=== PATIENT | female | born 1960 | race African-American/Black ===

== ENCOUNTER 2024-01-21 13:16 | Outpatient (OUT) | payer MEDICARE, MEDICAID, SELFPAY ==
--- NOTE | 2024-01-21 13:33 | CT_ITS ---
[address] [address] Patient Name: LISA YOUSIF MRN: [id number] date: 1960 Sex: F Assigned Patient Location: LAB Current Patient Location: Accession/Order Number: [id number] Exam Date: 01/21/2024 13:55 Report Date: 01/22/2024 08:32 At the request of: VALENTINA LIND Procedure: CT abdomen pelvis wo/w con EXAMINATION: CT abdomen pelvis wo/w con HISTORY: Hydronephrosis N13.3, Renal Cyst N28.1 COMPARISON: No relevant comparison available. TECHNIQUE: Axial, Coronal, and Sagittal images were created without and with non-ionic intravenous contrast material. Dose reduction techniques were achieved by using automated exposure control and/or adjustment of mA and/or kV according to patient size and/or use of iterative reconstruction technique. FINDINGS: LUNG BASES: No visible pulmonary or pleural disease. LIVER: No enlargement, atrophy, abnormal density, or significant focal lesion. BILIARY: No dilatation or calcification. PANCREAS: No lesion, fluid collection, ductal dilatation, or atrophy. SPLEEN: No enlargement or focal lesion. ADRENALS: No mass or enlargement. KIDNEYS: Moderate right hydroureteronephrosis extending down to the right ureterovesical junction with no focal obstruction or stone observed. Normal left. BOWEL/MESENTERY: Contour deformity and suture lines along the stomach. Moderate amount of stool throughout the colon. Nonobstructive bowel gas pattern normal appendix AORTA/VASCULAR: IVC filter. RETROPERITONEUM: No mass or adenopathy. LYMPH NODES: No adenopathy. URINARY BLADDER: Balloon catheter. Nondistended PELVIC ORGANS: No visible mass. Pelvic organs appropriate for patient age. ABDOMINAL WALL: No mass or hernia. BONES: No bony lesion or fracture. OTHER: Negative. CT/CT abdomen pelvis wo/w con IMPRESSION: Right moderate hydroureteronephrosis extending down to the ureterovesical junction. No focal obstruction observed Electronically authenticated by: JESSY ABEBE Date: 01/22/2024 08:32
[2024-01-21 13:41] LABS: Estimated GFR (African America >60 (>=60); Estimated GFR (Non-African Ame 54 (>=60)
== END 2024-01-21 13:17 | disposition home or self-care (01) ==
LOC: LAB 13:17
PROVIDERS: PCP Urology; Visit Provider Urology
DX: N13.30 Unspecified hydronephrosis (principal); N28.1 Cyst of kidney, acquired
CPT/HCPCS: 36415; 74178; 82565; Q9967

== ENCOUNTER 2024-03-11 12:55 | Outpatient (OUT) | payer MEDICARE, MEDICAID, SELFPAY ==
--- NOTE | 2024-03-11 12:57 | NM_ITS ---
The [address] [address] Patient Name: LISA YOUSIF MRN: [id number] date: 1960 Sex: F Assigned Patient Location: [facility] Current Patient Location: [place] Accession/Order Number: [id number] Exam Date: 03/11/2024 13:00 Report Date: 03/12/2024 14:26 At the request of: DAX CYR Procedure: NM renal flow w/wo pharm int NUCLEAR MEDICINE RENAL SCAN HISTORY: Flank pain. Right hydronephrosis. COMPARISON: None. METHOD: Following hydration, the patient was injected intravenously with 9.8 mCi of [id number]-MAG3 and 40 mg of Lasix, and a standard flow study and sequential images of the kidneys were acquired in posterior projection. Renograms of cortices were generated and analyzed. FINDINGS: The kidneys are orthotopic. There is asymmetric decreased perfusion and asymmetric decreased uptake of radiopharmaceutical to the right kidney. There is satisfactory perfusion and satisfactory uptake of radiopharmaceutical to the left kidney. There is excretion of both kidneys with no significant cortical retention. The renograms are downsloping bilaterally. The right T1/2 = 16 minutes. The left T1/2 = 11 minutes. The split renal function equals 28% for the right and 72% for the left kidney. NM/NM renal flow w/wo pharm int IMPRESSION: 1. Asymmetric decreased right renal function. 2. No evidence of obstruction. Electronically authenticated by: JAKE LEAL Date: 03/12/2024 14:26
[2024-03-11 14:00] VITALS: BP 1/1
[2024-03-11] MEDS: FUROSEMIDE 40 MG/4 ML VIAL IV (14:00)
== END 2024-03-11 12:56 | disposition home or self-care (01) ==
LOC: NM 12:56
PROVIDERS: PCP Urology; Visit Provider Physician Assistant
DX: N13.4 Hydroureter (principal); N13.30 Unspecified hydronephrosis
CPT/HCPCS: 78709; A9562

== ENCOUNTER 2024-04-21 12:14 | Outpatient (OUT) | payer MEDICARE, MEDICAID, SELFPAY ==
--- NOTE | 2024-04-21 12:27 | ECG_ITS ---
The [facility] Test Date: 2024-04-21 Pat Name: LISA YOUSIF Department: Room: - Gender: Female [employer] Super[employer]: : 1960 Requested By: [id number] Order Number: [id number] Reading MD: MARINA MOTA Measurements Intervals [place] Rate: 65 P: 31 CT: 164 QRS: -14 QRSD: 90 T: 0 QT: 398 QTc: 415 Interpretive Statements SINUS RHYTHM LOW QRS VOLTAGE IN PRECORDIAL LEADS [QRS DEFLECTION < 1.0 mV IN CHEST LEADS] MINIMAL VOLTAGE CRITERIA FOR LVH, CONSIDER NORMAL VARIANT [MEETS CRITERIA IN ONE OF: R(aVL), S(V1), R(V5), R(V5/V6)+S(V1)] WARNING: DATA QUALITY MAY AFFECT INTERPRETATION No previous ECG available for comparison Electronically Signed On 04-21-2024 22:35:44 EDT by MARINA MOTA
--- NOTE | 2024-04-21 13:19 | P.GSHP_ITS ---
History of Present Illness History of Present Illness Chief complaint: hydroureteronephrosis Narrative: Patient presents for preadmission testing. Patient is a very pleasant wheelchair dependent woman with a history of a spinal cord injury resulting in paraplegia. The patient states she lives with her daughter who does help her. The patient states she is able to use her arms to slide herself to transfer from her hospital bed to her wheelchair. She states she has a Alarcon catheter in place and has had many urinary tract infections. She does have a neurogenic bladder as well as overactive bladder. Review of Systems ROS Narrative REVIEW OF SYSTEMS: Negative except as stated in HPI, ten or more systems reviewed. Constitutional: No fever, chills, weakness ENT: No sore throat or epistaxis Cardiovascular: No chest pain or palpitations Respiratory: No shortness of breath, cough, or wheezing Musculoskeletal: No joint pain or swelling Gastrointestinal: No abdominal pain, constipation, diarrhea, or vomiting Genitourinary: No hematuria Neurological: No new numbness, tingling, weakness, or headache Psychiatric: No mood changes PFSH PFS Medical History (Updated 04/21/24 @ 13:26 by Juliana Vazquez NP) Alarcon catheter in place ?Z97.8 - Presence of other specified devices (ICD-10) Paraplegia ?G82.20 - Paraplegia, unspecified (ICD-10) Back pain ?M54.9 - Dorsalgia, unspecified (ICD-10) Diabetes ?E11.9 - Type 2 diabetes mellitus without complications (ICD-10) Anemia ?D64.9 - Anemia, unspecified (ICD-10) Deep vein thrombosis ?I82.409 - Acute embolism and thrombosis of unspecified deep veins of unspecified lower extremity (ICD-10) Sleep apnea ?G47.30 - Sleep apnea, unspecified (ICD-10) GERD (gastroesophageal reflux disease) ?K21.9 - Gastro-esophageal reflux disease without esophagitis (ICD-10) Chronic venous insufficiency ?I87.2 - Venous insufficiency (chronic) (peripheral) (ICD-10) Extremity edema ?R60.0 - Localized edema (ICD-10) Cataract ?H26.9 - Unspecified cataract (ICD-10) Unable to maintain weight-bearing ?R26.89 - Other abnormalities of gait and mobility (ICD-10) Wheelchair dependence ?Z99.3 - Dependence on wheelchair (ICD-10) Spinal cord injury Sacral wound ?S31.000A - Unspecified open wound of lower back and pelvis without p enetration into retroperitoneum, initial encounter (ICD-10) Urge incontinence ?N39.41 - Urge incontinence (ICD-10) Recurrent UTI ?N39.0 - Urinary tract infection, site not specified (ICD-10) Overactive bladder ?N32.81 - Overactive bladder (ICD-10) Neurogenic bladder ?N31.9 - Neuromuscular dysfunction of bladder, unspecified (ICD-10) Mixed incontinence ?N39.46 - Mixed incontinence (ICD-10) Abdominal pain ?R10.9 - Unspecified abdominal pain (ICD-10) Hydronephrosis ?N13.30 - Unspecified hydronephrosis (ICD-10) Other urethral stricture, female ?N35.82 - Other urethral stricture, female (ICD-10) Surgical History (Updated 04/21/24 @ 13:17 by Juliana Vazquez NP) S/P IVC filter ?Z95.828 - Presence of other vascular implants and grafts (ICD-10) History of spinal surgery ?Z98.890 - Other specified postprocedural states (ICD-10) S/P cataract extraction and insertion of intraocular lens ?Z98.49 - Cataract extraction status, unspecified eye (ICD-10) ?Z96.1 - Presence of intraocular lens (ICD-10) Status post incision and drainage ?Z98.890 - Other specified postprocedural states (ICD-10) H/O tubal ligation ?Z98.51 - Tubal ligation status (ICD-10) Hx of tonsillectomy ?Z90.89 - Acquired absence of other organs (ICD-10) H/O lithotripsy ?Z98.890 - Other specified postprocedural states (ICD-10) H/O colonoscopy ?Z98.890 - Other specified postprocedural states (ICD-10) Status post lumbar spine surgery for decompression of spinal cord ?Z98.890 - Other specified postprocedural states (ICD-10) H/O gastric bypass ?Z98.84 - Bariatric surgery status (ICD-10) S/P cystourethroscopy with dilation of urethral stricture ?Z98.890 - Other specified postprocedural states (ICD-10) H/O cystoscopy ?Z98.890 - Other specified postprocedural states (ICD-10) Family History (Updated 04/21/24 @ 12:59 by Juliana Vazquez NP) Other Family history of breast cancer Family history of diabetes mellitus Family history of heart disease Family history of hypertension Family history of myocardial infarction Social History (Updated 04/21/24 @ 12:50 by Juliana Vazquez NP) Within the past year, how often did you have a drink containing alcohol: never Score interpretation: A score less than 3 is consistent with normal alcohol consumption. Smoking status: Former smoker Non-prescribed substance use: denies use Highest level of school completed/degree received: high school graduate Meds Home Medications and Allergies Home Medications ?Medication ?Instructions ?Recorded ?Confirmed ?Type Super collagen vitamin c and 04/21/24 History biotin PO baclofen 20 mg tablet 20 mg PO .[id number] 04/21/24 04/21/24 History cranberry 500 mg capsule 1,500 mg PO DAILY 04/21/24 04/21/24 History d-mannose 500 mg capsule mg PO 04/21/24 History econazole 1 % topical cream applic topical 04/21/24 History ergocalciferol (vitamin D2) 1,250 1,250 mcg PO QWEEK 04/21/24 04/21/24 History mcg (50,000 unit) capsule lactobacillus combination no.4 3 3,000 mmu cells PO DAILY 04/21/24 04/21/24 History billion cell capsule (Probiotic) magnesium oxide 400 mg (241.3 mg 400 mg PO BID 04/21/24 04/21/24 History magnesium) tablet multivitamin (Daily Multi-Vitamin 1 tab PO DAILY 04/21/24 04/21/24 History tablet) omeprazole 20 mg capsule,delayed 20 mg PO DAILY 04/21/24 04/21/24 History release oxycodone-acetaminophen 7.5 mg-325 1 tab PO Q6H 04/21/24 04/21/24 History mg tablet pregabalin 100 mg capsule 100 mg PO BID 04/21/24 04/21/24 History simvastatin 20 mg tablet 20 mg PO DAILY 04/21/24 04/21/24 History trospium 60 mg capsule,extended 60 mg PO DAILY 04/21/24 04/21/24 History release 24 hr Allergies Allergy/AdvReac Type Severity Reaction Status Date / Time lisinopril Allergy angioedema Verified 04/21/24 12:48 sulfamethoxazole Allergy Muscle Verified 04/21/24 12:48 [From Bactrim] weakness trimethoprim [From Bactrim] Allergy Unknown Verified 03/11/24 14:04 Exam Narrative Exam Narrative: Constitutional: Awake, alert, appears comfortable in wheelchair, well-appearing, very pleasant, non-weightbearing, nontoxic, interactive, vital signs as charted Head: Normocephalic, atraumatic Neck: Supple, normal appearance, normal range of motion, no meningeal signs, no lymphadenopathy Respiratory: No respiratory distress, breath sounds clear Cardiovascular: Regular rate and rhythm, strong and regular heart tones Abdomen: Nontender, normal bowel sounds, soft, no CVA tenderness Musculoskeletal: Full range of motion upper extremities, unable to move lower extremities Skin: No rashes or induration, no lesions, only visible skin inspected Neuro: Good sensation bilateral upper extremities, lack of sensation bilateral lower extremities Psychiatric: Oriented ?3, normal affect Assessment and Plan Assessment and Plan (1) Other urethral stricture, female: (2) Hydronephrosis: (3) Neurogenic bladder: (4) Overactive bladder: (5) Alarcon catheter in place: Plan Cystoscopy, right retrograde pyelogram, possible right stent placement scheduled with Dr. Moore April 27, 2024.
[2024-04-21 13:33] LABS: Basophils Percent Auto 0.5 % (0.2-2.0); Eosinophils Absolute Auto 0.3 10^3/uL (0.0-0.7); Eosinophils Percent Auto 5.5 % (0.9-7.0); Hemoglobin 10.2 g/dL (12.0-16.0); Immature Granulocytes Abs Auto 0.01 10^3/uL (0.00-0.03); Immature Granulocytes Pct Auto 0.2 % (0.0-0.5); Lymphocytes Absolute Auto 2.1 10^3/uL (1.2-3.8); Lymphocytes Percent Auto 36.5 % (20.5-60.0); Mean Corpuscular HGB Conc 30.9 g/dL (29.9-35.2); Mean Corpuscular Hemoglobin 27.3 pg (26.7-34.0); Mean Corpuscular Volume 88.5 fL (81.0-99.0); Mean Platelet Volume 9.6 fL (9.5-13.5); Monocytes Absolute Auto 0.6 10^3/uL (0.3-0.8); Monocytes Percent Auto 10.2 % (1.7-12.0); Neutrophils Absolute Auto 2.7 10^3/uL (1.4-6.5); Neutrophils Percent Auto 47.1 % (43.0-75.0); Platelet Count 218 10^3/uL (150-450); Red Blood Count 3.73 10^6/uL (4.20-5.40); Red Cell Distribution Width 16.3 % (11.0-15.0); White Blood Count 5.8 10^3/uL (4.0-11.0)
[2024-04-21 13:45] LABS: Anion Gap 8.7; Calcium 8.5 mg/dL (8.5-10.1); Carbon Dioxide 31.1 mmol/L (21.0-32.0); Chloride 105 mmol/L (98-107); Estimated GFR (African America >60 (>=60); Estimated GFR (Non-African Ame 59 (>=60); Glucose 67 mg/dL (74-106); Potassium 3.8 mmol/L (3.5-5.1); Sodium 141 mmol/L (136-145)
== END 2024-04-21 12:15 | disposition home or self-care (01) ==
LOC: PST 12:17
PROVIDERS: PCP Internal Medicine; Visit Provider Urology
DX: Z01.810 Encounter for preprocedural cardiovascular examination (principal); Z01.812 Encounter for preprocedural laboratory examination; Z01.818 Encounter for other preprocedural examination; N13.9 Obstructive and reflux uropathy, unspecified; N35.12 Postinfective urethral stricture, not elsewhere classified, female
CPT/HCPCS: 80048; 85025; 93005; G0463

== ENCOUNTER 2024-04-27 11:17 | Day surgery (SDC) | payer MEDICARE, MEDICAID, SELFPAY ==
[2024-04-21 13:13] VITALS: BP 112/74; PULSE 58; TEMP 36.2; O2SAT 96; BMI 39.5
--- NOTE | 2024-04-27 | XR_ITS ---
The [address] [address] Patient Name: LISA YOUSIF MRN: [id number] date: 1960 Sex: F Assigned Patient Location: [facility] Current Patient Location: Accession/Order Number: [id number] Exam Date: 04/27/2024 13:15 Report Date: 04/29/2024 07:39 At the request of: VALENTINA LNID Procedure: XR urethrogram retrograde EXAM: XR urethrogram retrograde HISTORY: KIDNEY STONE COMPARISON: None. TECHNIQUE: 3 intraprocedural spot fluoroscopic radiographs. FINDINGS: Initial image demonstrates retrograde filling of right collecting system with contrast with subsequent imaging showing contrast retained within the mildly dilated right renal pelvis and calyces. Final image shows a cystoscope overlying the proximal right ureter. XR/XR urethrogram retrograde IMPRESSION: 1. Limited examination due to underpenetration images. 2. Cystoscopy with retrograde filling of right collecting system and right hydronephrosis as detailed above. Electronically authenticated by: APRIL PHELPS Date: 04/29/2024 07:39
[2024-04-27 11:28] VITALS: BP 169/95; PULSE 65; TEMP 36.1; O2SAT 95; BMI 39.5
[2024-04-27 12:01] LABS: Glucometer 40 mg/dL (74-106)
[2024-04-27] MEDS: LACTATED RINGER'S SOLUTION 1,000 ML 50 ML IV (12:04)
[2024-04-27 12:21] LABS: Glucometer 49 mg/dL (74-106)
[2024-04-27] MEDS: DEXTROSE 50 %-WATER 25 GM/50 ML SYRINGE 25 ML IV ×2 (12:26→14:18)
[2024-04-27 12:44] LABS: Glucometer 80 mg/dL (74-106)
[2024-04-27] MEDS: CEFAZOLIN SODIUM/DEXTROSE,ISO 2 GM/50 ML PIGGYBACK IV (12:59)
[2024-04-27] MEDS: IOHEXOL 240 MG/ML - 10 ML VIAL INJ (13:46)
[2024-04-27 13:55] VITALS: BP 141/78; PULSE 74; TEMP 36.3; O2SAT 96
[2024-04-27 14:10] VITALS: BP 117/76; PULSE 82; O2SAT 96
--- NOTE | 2024-04-27 14:16 | P.URON_ITS ---
Urology Surgery Operative Note Operative Note Procedure Date: 04/27/24 Time Out Performed: yes Pre-op Diagnosis: Right hydroureteronephrosis Post-op Diagnosis: same as pre-op Procedures performed: 1. Cystoscopy 2. Right retrograde pyelogram, ureteroscopy 3. Paez catheter exchange Anesthesia: MAC (Dr. Gallardo) Primary Surgeon: Irasema Moore Complications: none Estimated blood loss (mL): 0 Findings: Small capacity bladder with leakage ~ 150cc, 1+ trabeculations, mild white debris within bladder and renal pelvis, squamous metaplasia trigone, paez irritation bladder dome. No bladder tumors or lesions R distal ureter J hooking. Mild right hydroureteronephrosis, mildly tortuous proximal ureter. No ureteral tumors, strictures or stones. Free flowing drainage of contrast from right UO. Specimens: none Drains: 16Fr 2 way paez, 10 cc in balloon Indications for Procedures: 64 year old female with neurogenic bladder managed with paez catheter and incidental findings of right hydroureteronephrosis on CT scan. NM renal scan showed no obstruction, but decreased split function (R- 28%). After discussion of risks/benefits of management options, patient elected to proceed to the OR for cystoscopy, right retrograde pyelogram, ureteroscopy, possible right stent placement. Risks were discussed including but not limited to bleeding, pain, infection, damage to surrounding structures, inability to place a stent, and need for additional procedures. The patient understands if a stent is placed, it is not permanent and needs to be removed or exchanged within 3 months to prevent encrustation, infection, invasive procedures and/or permanent renal damage. Detailed description of Procedure: After informed consent was obtained, the patient was brought to the operating room and transferred onto the operating table in supine position. Sequential compression devices were placed on bilateral lower extremities. The patient received the appropriate dose of preoperative IV antibiotics and MAC anesthesia was induced. Indwelling paez catheter was removed. They were positioned in modified dorsolithotomy with the appropriate pressure points padded, prepped, and draped in the usual sterile fashion for this procedure. An operative safety timeout was performed confirming the patient's identity, laterality and procedure, and all present agreed to proceed. I began by inserting a 22 [place] rigid cystoscope with 30 degree lens into the patient's urethra and bladder without difficulty. There were no bladder tumors, lesions, stones or foreign bodies. Findings as above. Bilateral ureteral orifices were orthotopic and patent. I turned my attention to the right ureteral orifice and a 6- [place] open-ended catheter was inserted into the ureteral orifice and dilute contrast was injected for retrograde pyelogram with findings as above. Mild resistance instilling contrast retrograde. Next a semirigid ureteroscope was inserted into the right UO and able to carefully navigate through J-hooking, contrast injected for RPG as above. Scope was removed and contrast was seen to freely flow out. Ureteroscope was reinserted up to the renal pelvis to further evaluate tortuous proximal ureter without noted strictures, stones or tumors. Pull down ureteroscopy was performed confirming no additional findings. A 16Fr 2way paez catheter was inserted, 10 cc in balloon, and placed to gravity bag drainage. The patient tolerated the procedure well without complication. The patient was awakened from anesthesia and sent to PACU in stable condition. Plan: Discharge to SNF. Continue monitoring renal function and hydronephrosis periodically in case functional obstruction develops. Follow up in 6 months with renal US and BMP. Cont routine monthly paez exchanges. May consider botox in the future for neurogenic contracted bladder. Other Provider present: No Post Operative care instructions: see dc instructions Urinary Catheter Management Urinary Catheter Management Urethral: Cath placed during this visit: no
[2024-04-27 14:19] LABS: Glucometer 30 mg/dL (74-106)
[2024-04-27 14:19] LABS: Glucometer 34 mg/dL (74-106)
[2024-04-27 14:25] VITALS: BP 117/70; PULSE 71; O2SAT 93
[2024-04-27 14:56] LABS: Glucometer 139 mg/dL (74-106)
[2024-04-27 15:00] VITALS: BP 126/76; PULSE 82; O2SAT 94
== END 2024-04-27 15:20 | disposition home or self-care (01) ==
PROVIDERS: PCP Internal Medicine; Visit Provider Urology
PROC: (CPT 00910; principal; 2024-04-27 12:30)
DX: N13.30 Unspecified hydronephrosis (principal); N31.9 Neuromuscular dysfunction of bladder, unspecified; Z99.3 Dependence on wheelchair; Z87.440 Personal history of urinary (tract) infections; G82.20 Paraplegia, unspecified; Z87.891 Personal history of nicotine dependence; N39.41 Urge incontinence; N35.12 Postinfective urethral stricture, not elsewhere classified, female; E66.01 Morbid (severe) obesity due to excess calories; Z68.39 Body mass index [BMI] 39.0-39.9, adult; Z98.84 Bariatric surgery status; Z98.51 Tubal ligation status; G47.33 Obstructive sleep apnea (adult) (pediatric); E11.9 Type 2 diabetes mellitus without complications
CPT/HCPCS: 00910; 52351; 36415; 74420; 82948; J0690; J2250; J2704; Q9966

== ENCOUNTER 2024-11-08 13:14 | Outpatient (OUT) | payer MEDICARE, MEDICAID, SELFPAY ==
--- NOTE | 2024-11-08 | US_ITS ---
The [address] [address] Patient Name: LISA YOUSIF MRN: [id number] date: 1960 Sex: F Assigned Patient Location: Current Patient Location: Accession/Order Number: [id number] Exam Date: 11/08/2024 13:27 Report Date: 11/09/2024 04:51 At the request of: VALENTINA LIND Procedure: US renal BI EXAMINATION: US renal BI HISTORY: KIDNEY STONES N20.0 COMPARISON: CT abdomen pelvis 01/21/2024 TECHNIQUE: Ultrasound examination was performed of the kidneys and urinary bladder. FINDINGS: RIGHT KIDNEY: 1.3 cm cystic structure projecting from anterior mid body of kidney; not appreciably changed compared to prior CT study. No evidence of pelvocaliectasis, mass, or calculi. Normal parenchymal echogenicity. Color Doppler demonstrates blood flow within the kidney. Kidney: 9.8 x 5.0 x 4.1 cm LEFT KIDNEY: Nonspecific slightly hyperechoic area within superior pole, 1.5 x 0.9 x 1.3 cm. No evidence of pelvocaliectasis, mass, or calculi. Normal parenchymal echogenicity. Color Doppler demonstrates blood flow within the kidney. Kidney: 8.9 x 5.0 x 5.4 cm BLADDER: Completely empty with Alarcon catheter in place. US/US renal BI IMPRESSION: 1. Limited examination due to patient body habitus. 2. Suspect slightly complex cyst within right kidney mid body. Allowing for differences in technique there is no significant change compared to prior CT study. 3. Questionable hyperechoic area within superior pole of left kidney; artifact versus hemangioma. A stone is felt less likely given the lack of posterior shadowing. 4. If clinically indicated consider CT abdomen without and with IV contrast for better evaluation of the kidneys due to patient body habitus. Electronically authenticated by: APRIL PHELPS Date: 11/09/2024 04:51
[2024-11-08 13:42] LABS: Anion Gap 8.9; BUN Creatinine Ratio 16.1; Calcium 8.6 mg/dL (8.5-10.1); Chloride 107 mmol/L (98-107); Estimated GFR (African America 59 (>=60 mL/min/1.73m^2); Estimated GFR (Non-African Ame 49 (>=60 mL/min/1.73m^2); Glucose 114 mg/dL (74-106); Potassium 3.9 mmol/L (3.5-5.1); Sodium 143 mmol/L (136-145)
== END 2024-11-08 13:15 | disposition home or self-care (01) ==
LOC: US 13:14
PROVIDERS: PCP Internal Medicine; Visit Provider Urology
DX: N20.0 Calculus of kidney (principal); N28.1 Cyst of kidney, acquired
CPT/HCPCS: 36415; 76775; 80048